=== PATIENT | male | born 1945 | race Caucasian/White ===

== ENCOUNTER 2017-08-25 10:17 | Emergency (ER) | payer MEDICARE ==
[2017-08-25 10:42] VITALS: BP 168/68; PULSE 54; RESP 18; TEMP 98.7; O2SAT 96
--- NOTE | 2017-08-25 11:18 | C.PDOC ---
History Of Present Illness 72yo male, presents to ER for evaluation of right wrist pain x 2 months. Patient states the pain started when he was lifting weights; he states the pain is intermittent and aggravated by certain movements. He has not taken any medications for his symptoms. Patient is left hand dominant and denies any trauma or injury to his right hand. He denies any weakness, numbness, tingling, or changes in sensation. Time Seen by Provider: 08/25/17 11:02 Chief Complaint (Nursing): Upper Extremity Problem/Injury History Per: Patient History/Exam Limitations: no limitations Onset/Duration Of Symptoms: Days, Intermittent Episodes Current Symptoms Are (Timing): Still Present Quality: "Pain" Exacerbating Factor(s): Strenuous Use Of Affected Area Additional History Per: Patient Past Medical History Reviewed: Historical Data, Nursing Documentation, Vital Signs Vital Signs: Last Vital Signs Temp 98.7 F 08/25/17 10:39 Pulse 54 L 08/25/17 10:39 Resp 18 08/25/17 10:39 BP 168/68 H 08/25/17 10:39 Pulse Ox 96 08/25/17 11:58 - Medical History PMH: HTN Surgical History: No Surg Hx Family History: States: No Known Family Hx - Social History Hx Tobacco Use: No Hx Alcohol Use: No Hx Substance Use: No Review Of Systems Except As Marked, All Systems Reviewed And Found Negative. Musculoskeletal: Positive for: Hand Pain (right wrist pain) Neurological: Negative for: Weakness, Numbness Physical Exam - Physical Exam Appears: Non-toxic, No Acute Distress Skin: Normal Color, Dry Head: Atraumatic, Normacephalic Eye(s): bilateral: Normal Inspection, EOMI Nose: Normal Oral Mucosa: Moist Neck: Normal ROM, Supple Chest: Symmetrical Respiratory: No Accessory Muscle Use Extremity: Normal ROM, Tenderness (point tenderness to right radial wrist), Capillary Refill (< 2 seconds), No Swelling Extremity: Bilateral: Normal Color And Temperature, Normal ROM Pulses: Left Radial: Normal, Right Radial: Normal Neurological/Psych: Oriented x3, Normal Motor, Normal Sensation ED Course And Treatment O2 Sat by Pulse Oximetry: 96 (RA) Pulse Ox Interpretation: Normal Progress Note: Patient given Motrin 600mg PO for pain. XR Right hand and wrist ordered. Expansion Envelope Maker Hand used to ensure full understanding. XR reviewed by me and discussed with patient, shows no acute fractures or dislocations. Patient instructed on RICE method and instructed to follow up with hand specialist and orthopedist in 2-3 days. Patient placed in wrist immobilizer by senior technical project manager and checked by me; neurovascularly intact s/p immobilizer placement. Disposition - Disposition Referrals: Sergio Gibson MD [Staff Provider] - Disposition: HOME/ ROUTINE Disposition Time: 11:12 Condition: STABLE Additional Instructions: Rest and ice the area. Follow up with the hand specialist. Prescriptions: Ibuprofen [Motrin] 600 mg PO Q6 PRN #20 tab PRN Reason: Pain, Mild (1-3) Instructions: Common Wrist Injuries (DC) Forms: [employer] (Mauritanian) Print Language: UKRAINIAN - Clinical Impression Clinical Impression: Wrist strain - PA / PRACTICE REPRESENTATIVE / Resident Statement MD/DO has reviewed & agrees with the documentation as recorded. - Scribe Statement The provider has reviewed the documentation as recorded by the Scribe (Chika Monique) Provider Attestation: All medical record entries made by the Scribe were at my direction and personally dictated by me. I have reviewed the chart and agree that the record accurately reflects my personal performance of the history, physical exam, medical decision making, and the department course for this patient. I have also personally directed, reviewed, and agree with the discharge instructions and disposition.
--- NOTE | 2017-08-25 12:03 | RAD ---
PROCEDURE: Right Wrist Radiographs. HISTORY: Pain. No history of recent/ related trauma provided COMPARISON: None. FINDINGS: BONES: Normal. No fracture. JOINTS: Normal. No dislocation. SOFT TISSUES: Normal. OTHER FINDINGS: Vascular Radial and ulnar artery calcifications IMPRESSION: No acute findings related to/accounting for the clinical presentation.
== END 2017-08-25 11:54 | disposition home or self-care (01) ==
LOC: C.ER 10:17
DX: S66.911A Strain of unspecified muscle, fascia and tendon at wrist and hand level, right hand, initial encounter (principal); X58.XXXA Exposure to other specified factors, initial encounter; Y93.B3 Activity, free weights